=== PATIENT | male | born 1995 | race Caucasian/White ===

== ENCOUNTER 2020-10-24 19:49 | Emergency (ER) | payer OTHER ==
[~2020-10-24 19:49] MED LIST: NADOLOL20 MG PO; VOLTAREN **OUT75 MG PO
[2020-10-24] MEDS ORDERED: IBUPROFEN400 MG PO (21:23)
== END 2020-10-24 21:46 | disposition home or self-care (01) ==
LOC: FER 19:49
DX: S80.12XA Contusion of left lower leg, initial encounter (principal); F17.210 Nicotine dependence, cigarettes, uncomplicated; W20.8XXA Other cause of strike by thrown, projected or falling object, initial encounter; Y92.009 Unspecified place in unspecified non-institutional (private) residence as the place of occurrence of the external cause; Z23 Encounter for immunization
CPT/HCPCS: 73552; 73590; 90471; 90714